=== PATIENT | male | born 1980 | race Asian ===

== ENCOUNTER → 2025-04-03 | Outpatient (CLI) | payer MEDICARE, MEDICAID, SELFPAY ==
--- NOTE | 2025-04-03 | XR_ITS ---
Examination: Wrist, right 3 views Technique: Wrist AP, oblique, lateral 3 views Date and time of exam: April 03, 2025, 11:10 a.m. INDICATIONS: Hand pain and stiffness beginning 3 months ago FINDINGS: Soft tissue vascular calcification No fracture No cortical bony erosions No avascular necrosis IMPRESSION: No fracture Extensive soft tissue vascular calcification
--- NOTE | 2025-04-03 | XR_ITS ---
Examination: Hand, right 3 views Technique: Hand AP, oblique, lateral 3 views Date and time of exam: April 03, 2025, 1111 hours INDICATIONS: Right hand stiffness with palpable lump on the fourth digit 3 months FINDINGS: Extensive soft tissue calcifications most severe about the middle phalanx fourth digit, consider gouty arthropathy No fracture Soft tissue vascular calcification IMPRESSION: Extensive soft tissue calcifications most prominent about the middle phalanx fourth digit
== END | disposition home or self-care (01) ==
PROVIDERS: PCP Physician Assistant; Referring Provider Nurse Practitioner Gerontology; Visit Provider Nurse Practitioner Gerontology
DX: M25.841 Other specified joint disorders, right hand (principal); M25.831 Other specified joint disorders, right wrist
CPT/HCPCS: 73110; 73130